=== PATIENT | female | born 1985 | race Caucasian/White ===

== ENCOUNTER 2017-10-08 13:33 | Emergency (ER) | payer OTHER ==
[~2017-10-08] VITALS: Ht 152.4 cm; Wt 82.5 kg
[2017-10-08 14:18] VITALS: Ht 152.4 cm; Wt 82.5 kg
[2017-10-08 15:16] VITALS: BP 128/83
== END 2017-10-08 15:16 | disposition home or self-care (01) ==
LOC: ED 13:33
DX: S20.211A Contusion of right front wall of thorax, initial encounter (principal); R00.1 Bradycardia, unspecified; X58.XXXA Exposure to other specified factors, initial encounter; Y99.8 Other external cause status; Y93.89 Activity, other specified; Y92.89 Other specified places as the place of occurrence of the external cause

== ENCOUNTER 2018-01-13 19:39 | Emergency (ER) | payer SELFPAY ==
[~2018-01-13] VITALS: Ht 172.7 cm; Wt 88.0 kg
[2018-01-13 19:53] VITALS: Ht 172.7 cm; Wt 88.0 kg
== END 2018-01-13 21:38 | disposition home or self-care (01) ==
LOC: ED 19:39
DX: S63.615A Unspecified sprain of left ring finger, initial encounter (principal); S63.502A Unspecified sprain of left wrist, initial encounter; V00.211A Fall from ice-skates, initial encounter; Y93.89 Activity, other specified; Y92.89 Other specified places as the place of occurrence of the external cause; Y99.8 Other external cause status

== ENCOUNTER 2018-02-05 09:17 | Emergency (ER) | payer OTHER ==
[~2018-02-05] VITALS: Ht 172.7 cm; Wt 87.5 kg
[2018-02-05 09:26] VITALS: Ht 172.7 cm; Wt 87.5 kg
[2018-02-05 10:38] VITALS: BP 132/77
== END 2018-02-05 10:38 | disposition home or self-care (01) ==
LOC: ED 09:17
DX: S90.31XA Contusion of right foot, initial encounter (principal); W22.8XXA Striking against or struck by other objects, initial encounter; Y93.89 Activity, other specified; Y92.89 Other specified places as the place of occurrence of the external cause; Y99.8 Other external cause status

== ENCOUNTER 2020-01-01 11:32 | Emergency (ER) | payer OTHER ==
[~2020-01-01] VITALS: Ht 172.7 cm; Wt 99.8 kg
[2020-01-01 11:47] VITALS: Ht 172.7 cm; Wt 99.8 kg
[2020-01-01 13:41] VITALS: BP 147/81
== END 2020-01-01 12:50 | disposition home or self-care (01) ==
LOC: ED 11:32
DX: S42.332A Displaced oblique fracture of shaft of humerus, left arm, initial encounter for closed fracture (principal); S00.83XA Contusion of other part of head, initial encounter; S20.222A Contusion of left back wall of thorax, initial encounter; R03.0 Elevated blood-pressure reading, without diagnosis of hypertension; Z98.890 Other specified postprocedural states; W18.39XA Other fall on same level, initial encounter; Y93.89 Activity, other specified; Y92.098 Other place in other non-institutional residence as the place of occurrence of the external cause; Y99.8 Other external cause status
CPT/HCPCS: J1885; Q0092

== ENCOUNTER 2020-09-08 11:27 | Emergency (ER) | payer OTHER ==
[~2020-09-08] VITALS: Ht 170.2 cm; Wt 90.7 kg
[2020-09-08 11:39] VITALS: Ht 170.2 cm; Wt 90.7 kg
[2020-09-08 12:48] VITALS: BP 135/74
== END 2020-09-08 12:48 | disposition home or self-care (01) ==
LOC: ED 11:27
DX: S62.304A Unspecified fracture of fourth metacarpal bone, right hand, initial encounter for closed fracture (principal); F32.9 Major depressive disorder, single episode, unspecified; Z98.890 Other specified postprocedural states; Y04.8XXA Assault by other bodily force, initial encounter; Y93.89 Activity, other specified; Y92.89 Other specified places as the place of occurrence of the external cause; Y99.8 Other external cause status
CPT/HCPCS: L3999

== ENCOUNTER 2020-09-19 10:44 | Emergency (ER) | payer OTHER ==
[~2020-09-19] VITALS: Ht 170.2 cm; Wt 90.3 kg
[2020-09-19 11:08] VITALS: Ht 170.2 cm; Wt 90.3 kg
[2020-09-19 14:23] VITALS: BP 121/72
== END 2020-09-19 13:16 | disposition home or self-care (01) ==
LOC: ED 10:44
DX: S62.355D Nondisplaced fracture of shaft of fourth metacarpal bone, left hand, subsequent encounter for fracture with routine healing (principal); Z76.0 Encounter for issue of repeat prescription; Z98.890 Other specified postprocedural states; X58.XXXD Exposure to other specified factors, subsequent encounter
CPT/HCPCS: A4570